=== PATIENT | male | born 1975 | race Caucasian/White ===

== ENCOUNTER 2022-09-18 15:54 | Inpatient (IN) | payer SELFPAY ==
[2022-09-18 17:10] VITALS: BMI 24.1
[2022-09-18] MEDS ORDERED: P-EPHED 60MG/TRIPROLIDI 2.5MG TABLET PO PRN (23:45)
[2022-09-18] MEDS ORDERED: IBUPROFEN 600 MG TABLET (FP) PO PRN (23:45)
[2022-09-18] MEDS ORDERED: LOPERAMIDE HCL 2 MG CAPSULE PO PRN (23:45)
[2022-09-18] MEDS ORDERED: ACETAMINOPHEN 325 MG TABLET (FP) PO PRN (23:45)
[2022-09-18] MEDS ORDERED: ONDANSETRON *ODT* 4 MG TABLET SL PRN (23:45)
[2022-09-18] MEDS ORDERED: NICOTINE POLACRILEX 2 MG GUM BUC PRN (23:45)
[2022-09-18] MEDS ORDERED: BISMUTH SUBSALICYLATE 524 MG/30 ML PO PRN (23:45)
[2022-09-18] MEDS ORDERED: guaiFENesin 600 MG TABLET.ER (FP) PO PRN (23:45)
[2022-09-18] MEDS ORDERED: MAGNESIUM HYDROX 2400MG/30ML ORAL SUSPENSION 30 ML CUP PO PRN (23:45)
[2022-09-18] MEDS ORDERED: METHOCARBAMOL 500 MG TABLET PO PRN (23:45)
[2022-09-18] MEDS ORDERED: BENZONATATE 200 MG CAPSULE PO PRN (23:45)
[2022-09-18] MEDS ORDERED: POLYETHYLENE GLYCOL (HEALTHYLAX) 3350 17 GM PACKET PO PRN (23:45)
[2022-09-18] MEDS ORDERED: BENZOCAINE/MENTHOL (CHLORASEPTIC ) LOZENGE MM PRN (23:45)
[2022-09-18] MEDS ORDERED: hydrOXYzine PAMOATE 25 MG CAPSULE (FP) PO PRN (23:45)
[2022-09-18] MEDS ORDERED: DICYCLOMINE HCL 10 MG CAPSULE PO PRN (23:45)
[2022-09-18] MEDS ORDERED: MAG HYDROX/AL HYDROX/SIMETH 30 ML UNIT-DOSE CUP PO PRN (23:45)
[2022-09-18] MEDS ORDERED: IBUPROFEN 400 MG TABLET (FP) PO PRN (23:45)
[2022-09-19 09:15] VITALS: TEMP 97.5
[2022-09-19] MEDS ORDERED: PRENATAL VITAMINS W/ FOLIC ACID TABLET (FP) PO SCH (10:00)
[2022-09-19 11:36] LABS: HEMATOCRIT 40.4 % (35.4-49); HEMOGLOBIN 13.9 GM/dL (11.7-16.9); MCH 29.1 pg (25.7-33.7); MCHC 34.5 g/dl (32.0-35.9); MEAN CELL VOLUME 84.3 fl (80-96); MEAN PLT VOLUME 9.8 fl (7.5-11.1); PLATELET COUNT 246 10^3/uL (134-434); RBC 4.79 M/mm3 (4.00-5.60); WHITE BLOOD COUNT 9.5 K/mm3 (4.0-10.0)
[2022-09-19 12:21] LABS: ALBUMIN 3.2 g/dl (3.4-5.0); BLOOD UREA NITROGEN 11.6 mg/dL (7-18)
[2022-09-19 12:24] LABS: CREATININE 0.7 mg/dL (0.55-1.3)
[2022-09-19 12:26] LABS: BILIRUBIN,TOTAL 0.6 mg/dL (0.2-1); TOT PROT 6.5 g/dl (6.4-8.2)
[2022-09-19 13:45] VITALS: BP 129/89; PULSE 94; RESP 18
[2022-09-19] MEDS ORDERED: metFORMIN HCL 500 MG TABLET (FP) PO SCH (16:30)
[2022-09-19] MEDS ORDERED: MELATONIN 5 MG TABLETS PO SCH (22:00)
[2022-09-19] MEDS ORDERED: THIAMINE HCL 100 MG TABLET (FP) PO SCH (22:00)
== END 2022-09-19 14:20 | disposition home or self-care (01) | DRG 770 ==
LOC: YASAS 15:54 → UNDOADMIN 21:20 → Y3N 21:20 → Y6N 09-19 07:16
PROVIDERS: ADMIT Allergy & Immunology; ATTEND Surgery
PROC: HZ2ZZZZ Detoxification Services for Substance Abuse Treatment (ICD-10-PCS; principal; 2022-09-19)
DX: F10.20 Alcohol dependence, uncomplicated (principal); F17.210 Nicotine dependence, cigarettes, uncomplicated; U07.1 COVID-19; I10 Essential (primary) hypertension; E11.9 Type 2 diabetes mellitus without complications; Z79.84 Long term (current) use of oral hypoglycemic drugs; Z62.810 Personal history of physical and sexual abuse in childhood; Z91.410 Personal history of adult physical and sexual abuse
CPT/HCPCS: 36415; 80053; 82962; 85027; 86780; 87635; 87811